=== PATIENT | male | born 1965 | race Caucasian/White ===

== ENCOUNTER 2021-05-14 10:54 | Inpatient (IN) ==
[2021-05-14] MEDS ORDERED: Saliva Stimulant 44.3ml BOTTLE PO PRN (16:47)
[2021-05-14] MEDS: *HR* HYDROcodone/Acet 5/325 mg TABLET PO PRN (18:14)
[2021-05-14] MEDS: Nicotine 14 MG PATCH.TD24 TD SCH (18:14)
[2021-05-14] MEDS: Divalproex (24 HR) 500 MG TABLET PO SCH (22:33)
[2021-05-14] MEDS: Ipratropium/Albuterol Neb 3 ML IH SCH (22:33)
[2021-05-14] MEDS: hydrOXYzine pamoate 25 MG CAPSULE PO SCH (22:34)
[2021-05-15] MEDS: Ipratropium/Albuterol Neb 3 ML IH SCH ×4 (04:36→22:15)
[2021-05-15] MEDS: *HR* Enoxaparin 40 MG/0.4 ML SYRINGE SQ SCH (06:38)
[2021-05-15 07:39] LABS: Basophils % 0.3 %; Eosinophils # 0.1 K/mcL (0.0-0.6); Eosinophils % 0.8 %; Hematocrit 20.7 % (37.5-50.1); Hemoglobin 7.2 g/dL (12.9-16.9); Immature Granulocytes % 0.5 % (0-4); Lymphocytes # 1.4 K/mcL (0.6-4.6); Lymphocytes % 19.5 %; Mean Corpuscular HGB Conc 34.8 g/dL (31.6-35.5); Mean Corpuscular Hemoglobin 30.1 pg (28.0-33.3); Mean Corpuscular Volume 86.6 fL (83.0-100.0); Monocytes # 0.9 K/mcL (0.0-1.3); Monocytes % 12.6 %; Neutrophils # 4.9 K/mcL (1.6-8.9); Platelet Count 268 K/mcL (140-400); Red Blood Count 2.39 M/mcL (4.19-5.50); Red Cell Distribution Width 14.2 % (11.5-14.5); Segmented Neutrophils % 66.3 %; White Blood Count 7.4 K/mcL (4.3-11.1)
[2021-05-15 07:58] LABS: BUN/Creatinine Ratio 28 (6-26); Blood Urea Nitrogen 16 mg/dL (6-20); Calcium 8.6 mg/dL (8.6-10.3); Carbon Dioxide 26 mEq/L (23-29); Chloride 97 mEq/L (98-107); Glucose 92 mg/dL (70-105); Osmolality,Calculated 269 (280-300); Potassium 3.9 mEq/L (3.5-5.1); Sodium 129 mEq/L (136-145); eGFR For African Americans > 60 (> 60); eGFR For Non-African Americans > 60 (> 60)
[2021-05-15] MEDS: Cholecalciferol (D-3) 1,000 UNIT (25MCG) TABLET PO SCH (08:15)
[2021-05-15] MEDS: Multivit/Ca/Min/Fe/FA 1 TAB TABLET PO SCH (08:15)
[2021-05-15] MEDS: lisinopriL 20 MG TABLET PO SCH (08:15)
[2021-05-15] MEDS: Aspirin Enteric Coated 81 MG Tablet PO SCH (08:16)
[2021-05-15] MEDS: hydrOXYzine pamoate 25 MG CAPSULE PO SCH (08:16)
[2021-05-15] MEDS: *HR* HYDROcodone/Acet 5/325 mg TABLET PO PRN ×2 (12:00→18:04)
[2021-05-15] MEDS: Nicotine 14 MG PATCH.TD24 TD SCH (18:04)
[2021-05-15] MEDS: Divalproex (24 HR) 500 MG TABLET PO SCH (20:35)
[2021-05-16] MEDS: *HR* Enoxaparin 40 MG/0.4 ML SYRINGE SQ SCH (03:57)
[2021-05-16] MEDS: *HR* HYDROcodone/Acet 5/325 mg TABLET PO PRN (03:58)
[2021-05-16] MEDS: Ipratropium/Albuterol Neb 3 ML IH SCH ×4 (04:01→21:22)
[2021-05-16] MEDS: lisinopriL 20 MG TABLET PO SCH (11:17)
[2021-05-16] MEDS: Aspirin Enteric Coated 81 MG Tablet PO SCH (11:17)
[2021-05-16] MEDS: Cholecalciferol (D-3) 1,000 UNIT (25MCG) TABLET PO SCH (11:17)
[2021-05-16] MEDS: Multivit/Ca/Min/Fe/FA 1 TAB TABLET PO SCH (11:17)
[2021-05-16] MEDS: Nicotine 14 MG PATCH.TD24 TD SCH (18:20)
[2021-05-16] MEDS: Divalproex (24 HR) 500 MG TABLET PO SCH (20:36)
[2021-05-17] MEDS: Ipratropium/Albuterol Neb 3 ML IH SCH ×4 (03:35→21:28)
[2021-05-17] MEDS: *HR* Enoxaparin 40 MG/0.4 ML SYRINGE SQ SCH (04:56)
[2021-05-17] MEDS: Multivit/Ca/Min/Fe/FA 1 TAB TABLET PO SCH (08:10)
[2021-05-17] MEDS: Aspirin Enteric Coated 81 MG Tablet PO SCH (08:10)
[2021-05-17] MEDS: Cholecalciferol (D-3) 1,000 UNIT (25MCG) TABLET PO SCH (08:10)
[2021-05-17] MEDS: lisinopriL 20 MG TABLET PO SCH (08:10)
[2021-05-17] MEDS: Nicotine 14 MG PATCH.TD24 TD SCH (17:12)
[2021-05-17] MEDS: hydrOXYzine pamoate 25 MG CAPSULE PO PRN (19:52)
[2021-05-17] MEDS: Divalproex (24 HR) 500 MG TABLET PO SCH (19:52)
[2021-05-17] MEDS: Acetaminophen 325 MG TABLET PO PRN (19:59)
[2021-05-18] MEDS: Ipratropium/Albuterol Neb 3 ML IH SCH ×2 (03:51→09:43)
[2021-05-18] MEDS: *HR* Enoxaparin 40 MG/0.4 ML SYRINGE SQ SCH (05:03)
[2021-05-18 05:32] LABS: Alanine Aminotransferase 13 Units/L (7-52); Albumin 3.6 g/dL (3.5-5.7); Albumin/Globulin Ratio 1.5 (1.1-2.2); Alkaline Phosphatase 35 Units/L (34-104); Aspartate Amino Transferase 21 Units/L (13-39); BUN/Creatinine Ratio 21 (6-26); Bilirubin,Total 0.7 mg/dL (0.3-1.0); Blood Urea Nitrogen 12 mg/dL (6-20); Calcium 8.8 mg/dL (8.6-10.3); Carbon Dioxide 24 mEq/L (23-29); Chloride 102 mEq/L (98-107); Globulin 2.4 g/dL (2.4-3.5); Glucose 88 mg/dL (70-105); Magnesium 1.9 mg/dL (1.6-2.6); Osmolality,Calculated 275 (280-300); Potassium 3.8 mEq/L (3.5-5.1); Sodium 133 mEq/L (136-145); eGFR For African Americans > 60 (> 60); eGFR For Non-African Americans > 60 (> 60)
[2021-05-18 05:36] LABS: Hematocrit 22.6 % (37.5-50.1); Hemoglobin 7.8 g/dL (12.9-16.9); Mean Corpuscular HGB Conc 34.5 g/dL (31.6-35.5); Mean Corpuscular Hemoglobin 30.6 pg (28.0-33.3); Mean Corpuscular Volume 88.6 fL (83.0-100.0); Mean Platelet Volume 9.6 fL (9.4-12.4); Red Blood Count 2.55 M/mcL (4.19-5.50); Red Cell Distribution Width 14.6 % (11.5-14.5); White Blood Count 6.9 K/mcL (4.3-11.1)
[2021-05-18 05:55] LABS: Platelet Count 482 K/mcL (140-400)
[2021-05-18 08:06] LABS: % Iron Saturation 24 % (20-55); Iron 62 mcg/dL (65-175); Transferrin 181 mg/dL (203-362)
[2021-05-18 08:31] LABS: Folate 10.2 ng/mL (3.0-16.0)
[2021-05-18] MEDS: Cholecalciferol (D-3) 1,000 UNIT (25MCG) TABLET PO SCH (08:34)
[2021-05-18] MEDS: Aspirin Enteric Coated 81 MG Tablet PO SCH (08:34)
[2021-05-18] MEDS: lisinopriL 20 MG TABLET PO SCH (08:35)
[2021-05-18] MEDS: Multivit/Ca/Min/Fe/FA 1 TAB TABLET PO SCH (08:35)
[2021-05-18] MEDS: Acetaminophen 325 MG TABLET PO PRN ×2 (08:35→19:56)
[2021-05-18] MEDS: Nicotine 14 MG PATCH.TD24 TD SCH (08:42)
[2021-05-18] MEDS ORDERED: Ipratropium/Albuterol Neb 3 ML IH PRN (14:46)
[2021-05-18] MEDS: hydrOXYzine pamoate 25 MG CAPSULE PO PRN (19:56)
[2021-05-18] MEDS: Divalproex (24 HR) 500 MG TABLET PO SCH (19:56)
[2021-05-19] MEDS: *HR* Enoxaparin 40 MG/0.4 ML SYRINGE SQ SCH (04:58)
[2021-05-19] MEDS: lisinopriL 20 MG TABLET PO SCH (07:35)
[2021-05-19] MEDS: Cholecalciferol (D-3) 1,000 UNIT (25MCG) TABLET PO SCH (07:35)
[2021-05-19] MEDS: *HR* HYDROcodone/Acet 5/325 mg TABLET PO PRN ×2 (07:35→14:59)
[2021-05-19] MEDS: Multivit/Ca/Min/Fe/FA 1 TAB TABLET PO SCH (07:35)
[2021-05-19] MEDS: Aspirin Enteric Coated 81 MG Tablet PO SCH (07:35)
[2021-05-19] MEDS: Nicotine 14 MG PATCH.TD24 TD SCH (17:35)
[2021-05-19] MEDS: hydrOXYzine pamoate 25 MG CAPSULE PO PRN (17:35)
[2021-05-19] MEDS: Divalproex (24 HR) 500 MG TABLET PO SCH (19:34)
[2021-05-19] MEDS: Acetaminophen 325 MG TABLET PO PRN (19:35)
[2021-05-20] MEDS: *HR* Enoxaparin 40 MG/0.4 ML SYRINGE SQ SCH (04:57)
[2021-05-20] MEDS: lisinopriL 20 MG TABLET PO SCH (07:06)
[2021-05-20] MEDS: Cholecalciferol (D-3) 1,000 UNIT (25MCG) TABLET PO SCH (07:06)
[2021-05-20] MEDS: *HR* HYDROcodone/Acet 5/325 mg TABLET PO PRN ×3 (07:07→20:13)
[2021-05-20] MEDS: Multivit/Ca/Min/Fe/FA 1 TAB TABLET PO SCH (07:07)
[2021-05-20] MEDS: hydrOXYzine pamoate 25 MG CAPSULE PO PRN ×2 (07:07→13:47)
[2021-05-20] MEDS: Aspirin Enteric Coated 81 MG Tablet PO SCH (07:07)
[2021-05-20] MEDS: Nicotine 14 MG PATCH.TD24 TD SCH (13:47)
[2021-05-20] MEDS: Divalproex (24 HR) 500 MG TABLET PO SCH (20:10)
[2021-05-21] MEDS: *HR* Enoxaparin 40 MG/0.4 ML SYRINGE SQ SCH (05:29)
[2021-05-21] MEDS: Cholecalciferol (D-3) 1,000 UNIT (25MCG) TABLET PO SCH (07:57)
[2021-05-21] MEDS: *HR* HYDROcodone/Acet 5/325 mg TABLET PO PRN ×2 (07:57→16:37)
[2021-05-21] MEDS: lisinopriL 20 MG TABLET PO SCH (07:58)
[2021-05-21] MEDS: Aspirin Enteric Coated 81 MG Tablet PO SCH (07:58)
[2021-05-21] MEDS: Multivit/Ca/Min/Fe/FA 1 TAB TABLET PO SCH (07:58)
[2021-05-21] MEDS: Nicotine 14 MG PATCH.TD24 TD SCH (16:36)
[2021-05-21] MEDS: Divalproex (24 HR) 500 MG TABLET PO SCH (20:34)
[2021-05-22 06:10] LABS: Basophils % 0.3 %; Eosinophils # 0.2 K/mcL (0.0-0.6); Eosinophils % 2.6 %; Hematocrit 24.9 % (37.5-50.1); Hemoglobin 8.5 g/dL (12.9-16.9); Immature Granulocytes % 0.9 % (0-4); Lymphocytes # 1.6 K/mcL (0.6-4.6); Lymphocytes % 20.5 %; Mean Corpuscular HGB Conc 34.1 g/dL (31.6-35.5); Mean Corpuscular Hemoglobin 30.6 pg (28.0-33.3); Mean Corpuscular Volume 89.6 fL (83.0-100.0); Monocytes % 12.8 %; Platelet Count 600 K/mcL (140-400); Red Blood Count 2.78 M/mcL (4.19-5.50); Red Cell Distribution Width 14.9 % (11.5-14.5); Segmented Neutrophils % 62.9 %
[2021-05-22] MEDS: *HR* Enoxaparin 40 MG/0.4 ML SYRINGE SQ SCH (06:22)
[2021-05-22 06:26] LABS: BUN/Creatinine Ratio 16 (6-26); Blood Urea Nitrogen 9 mg/dL (6-20); Calcium 9.6 mg/dL (8.6-10.3); Carbon Dioxide 24 mEq/L (23-29); Chloride 100 mEq/L (98-107); Glucose 107 mg/dL (70-105); Osmolality,Calculated 271 (280-300); Potassium 3.5 mEq/L (3.5-5.1); Sodium 131 mEq/L (136-145); eGFR For African Americans > 60 (> 60); eGFR For Non-African Americans > 60 (> 60)
[2021-05-22] MEDS: lisinopriL 20 MG TABLET PO SCH (08:54)
[2021-05-22] MEDS: Aspirin Enteric Coated 81 MG Tablet PO SCH (08:54)
[2021-05-22] MEDS: Multivit/Ca/Min/Fe/FA 1 TAB TABLET PO SCH (08:54)
[2021-05-22] MEDS: Cholecalciferol (D-3) 1,000 UNIT (25MCG) TABLET PO SCH (08:54)
[2021-05-22] MEDS: Nicotine 14 MG PATCH.TD24 TD SCH (15:28)
[2021-05-22] MEDS: Divalproex (24 HR) 500 MG TABLET PO SCH (20:53)
[2021-05-23] MEDS: *HR* Enoxaparin 40 MG/0.4 ML SYRINGE SQ SCH (06:04)
[2021-05-23] MEDS: Cholecalciferol (D-3) 1,000 UNIT (25MCG) TABLET PO SCH (09:14)
[2021-05-23] MEDS: Multivit/Ca/Min/Fe/FA 1 TAB TABLET PO SCH (09:14)
[2021-05-23] MEDS: Aspirin Enteric Coated 81 MG Tablet PO SCH (09:14)
[2021-05-23] MEDS: lisinopriL 20 MG TABLET PO SCH (09:15)
[2021-05-23] MEDS: Nicotine 14 MG PATCH.TD24 TD SCH (15:53)
[2021-05-23] MEDS: Divalproex (24 HR) 500 MG TABLET PO SCH (20:11)
[2021-05-24] MEDS: *HR* Enoxaparin 40 MG/0.4 ML SYRINGE SQ SCH (05:54)
[2021-05-24] MEDS: lisinopriL 20 MG TABLET PO SCH (08:26)
[2021-05-24] MEDS: Aspirin Enteric Coated 81 MG Tablet PO SCH (08:27)
[2021-05-24] MEDS: Multivit/Ca/Min/Fe/FA 1 TAB TABLET PO SCH (08:27)
[2021-05-24] MEDS: Cholecalciferol (D-3) 1,000 UNIT (25MCG) TABLET PO SCH (08:27)
[2021-05-24] MEDS: Nicotine 14 MG PATCH.TD24 TD SCH (13:13)
[2021-05-24] MEDS: Divalproex (24 HR) 500 MG TABLET PO SCH (19:37)
[2021-05-24] MEDS: Acetaminophen 325 MG TABLET PO PRN (19:40)
[2021-05-25] MEDS: *HR* Enoxaparin 40 MG/0.4 ML SYRINGE SQ SCH (04:45)
[2021-05-25 05:10] LABS: Basophils % 0.3 %; Eosinophils # 0.2 K/mcL (0.0-0.6); Eosinophils % 2.3 %; Hematocrit 24.4 % (37.5-50.1); Hemoglobin 8.1 g/dL (12.9-16.9); Immature Granulocytes % 0.5 % (0-4); Lymphocytes # 1.6 K/mcL (0.6-4.6); Lymphocytes % 20.8 %; Mean Corpuscular HGB Conc 33.2 g/dL (31.6-35.5); Mean Corpuscular Hemoglobin 30.5 pg (28.0-33.3); Mean Corpuscular Volume 91.7 fL (83.0-100.0); Mean Platelet Volume 9.6 fL (9.4-12.4); Monocytes # 0.8 K/mcL (0.0-1.3); Monocytes % 10.2 %; Neutrophils # 4.9 K/mcL (1.6-8.9); Platelet Count 580 K/mcL (140-400); Red Blood Count 2.66 M/mcL (4.19-5.50); Red Cell Distribution Width 15.3 % (11.5-14.5); Segmented Neutrophils % 65.9 %; White Blood Count 7.5 K/mcL (4.3-11.1)
[2021-05-25 05:22] LABS: BUN/Creatinine Ratio 31 (6-26); Blood Urea Nitrogen 15 mg/dL (6-20); Carbon Dioxide 26 mEq/L (23-29); Chloride 100 mEq/L (98-107); Glucose 120 mg/dL (70-105); Osmolality,Calculated 278 (280-300); Potassium 3.9 mEq/L (3.5-5.1); Sodium 133 mEq/L (136-145); eGFR For African Americans > 60 (> 60); eGFR For Non-African Americans > 60 (> 60)
[2021-05-25] MEDS: Multivit/Ca/Min/Fe/FA 1 TAB TABLET PO SCH (08:00)
[2021-05-25] MEDS: Cholecalciferol (D-3) 1,000 UNIT (25MCG) TABLET PO SCH (08:00)
[2021-05-25] MEDS: lisinopriL 20 MG TABLET PO SCH (08:00)
[2021-05-25] MEDS: Aspirin Enteric Coated 81 MG Tablet PO SCH (08:00)
[2021-05-25] MEDS: Nicotine 14 MG PATCH.TD24 TD SCH (15:46)
[2021-05-25] MEDS: Divalproex (24 HR) 500 MG TABLET PO SCH (19:32)
[2021-05-26] MEDS: *HR* HYDROcodone/Acet 5/325 mg TABLET PO PRN ×2 (03:07→10:17)
[2021-05-26] MEDS: *HR* Enoxaparin 40 MG/0.4 ML SYRINGE SQ SCH (06:07)
[2021-05-26] MEDS: Cholecalciferol (D-3) 1,000 UNIT (25MCG) TABLET PO SCH (07:48)
[2021-05-26] MEDS: Multivit/Ca/Min/Fe/FA 1 TAB TABLET PO SCH (07:48)
[2021-05-26] MEDS: Aspirin Enteric Coated 81 MG Tablet PO SCH (07:48)
[2021-05-26] MEDS: lisinopriL 20 MG TABLET PO SCH (07:48)
[2021-05-26] MEDS ORDERED: hydrALAZINE 25 MG TABLET PO PRN (11:38)
[2021-05-26] MEDS: Nicotine 14 MG PATCH.TD24 TD SCH (16:30)
[2021-05-26] MEDS: Divalproex (24 HR) 500 MG TABLET PO SCH (20:25)
[2021-05-26] MEDS: Acetaminophen 325 MG TABLET PO PRN (20:25)
[2021-05-27] MEDS: *HR* Enoxaparin 40 MG/0.4 ML SYRINGE SQ SCH (04:28)
[2021-05-27 07:17] VITALS: BP 147/93; PULSE 81; RESP 18; TEMP 98.8; O2SAT 98
[2021-05-27] MEDS: lisinopriL 20 MG TABLET PO SCH (08:06)
[2021-05-27] MEDS: Aspirin Enteric Coated 81 MG Tablet PO SCH (08:06)
[2021-05-27] MEDS: Multivit/Ca/Min/Fe/FA 1 TAB TABLET PO SCH (08:06)
[2021-05-27] MEDS: Cholecalciferol (D-3) 1,000 UNIT (25MCG) TABLET PO SCH (08:06)
== END 2021-05-27 14:45 | disposition home health service (06) ==
LOC: INPGRE 16:59
PROVIDERS: ADMIT Family Medicine; ATTEND Family Medicine